=== PATIENT | female | born 1970 | race Caucasian/White ===

== ENCOUNTER 2016-08-28 13:05 | Inpatient (IN) | payer BC ==
[~2016-08-28] VITALS: Ht 152.4 cm; Wt 57.5 kg
[2016-08-28] MEDS ORDERED: LISI-662 PO (13:35)
[2016-08-28] MEDS ORDERED: SITA50 PO (13:35)
[2016-08-28] MEDS ORDERED: MINO10 PO (13:35)
[2016-08-28] MEDS ORDERED: PHOSLOC PO (13:35)
[2016-08-28] MEDS ORDERED: FOLI0.8T22 PO (13:35)
[2016-08-28] MEDS ORDERED: METO50 PO (13:35)
[2016-08-28 13:41] LABS: BASOPHILS % (AUTO) 0.3 % (0.0-2.0); HEMATOCRIT 28.6 % (36-46); HEMOGLOBIN 9.3 g/dL (12.0-16.0); LYMPHOCYTES # (AUTO) 1.7 K/uL (1.0-4.8); LYMPHOCYTES % (AUTO) 13.8 % (22.0-44.0); MEAN CORPUSCULAR HGB CONC 32.3 G/dL (31.0-37.0); MEAN CORPUSCULAR VOLUME 90 fL (80-100); MONOCYTES # (AUTO) 0.7 K/uL (0.1-1.0); MONOCYTES % (AUTO) 5.9 % (2.0-9.0); NEUTROPHILS # (AUTO) 9.1 K/uL (1.8-7.7); PLATELET COUNT (AUTO) 204 K/uL (150-450); RED BLOOD CELL COUNT(AUTO) 3.19 MIL/uL (4.00-5.20); RED CELL DISTRIBUTION WIDTH 16.4 % (11.5-14.5)
[2016-08-28 13:41] LABS: GLUCOSE,POINT OF CARE 163 MG/DL (70-110)
[2016-08-28 13:52] LABS: CALCIUM, TOTAL 7.5 mg/dL (8.8-10.5); CREATININE 10.16 mg/dL (0.60-1.30); POTASSIUM 5.2 mmol/L (3.5-5.1)
[2016-08-28 13:58] LABS: BILIRUBIN,TOTAL 0.4 mg/dL (0.1-1.0); TOTAL PROTEIN, SERUM 6.7 g/dL (6.4-8.2)
[2016-08-28 16:16] VITALS: BP 185/96
[2016-08-28] MEDS ORDERED: DEXTROSE 50%-WATER 25 GM/50 ML SYRINGE IVP PRN ×2 (18:00)
[2016-08-28] MEDS ORDERED: INSULIN REGULAR, HUMAN 100 UNITS/ML SQ PRN (18:00)
[2016-08-28] MEDS: VITAMIN B COMP/VIT C/FOLIC ACID CAPSULE PO SCH (18:43)
[2016-08-28] MEDS: LISINOPRIL 20 MG TABLET PO SCH (18:43)
[2016-08-28] MEDS ORDERED: ONDANSETRON HCL 4 MG/2 ML VIAL IVP PRN (19:00)
[2016-08-28] MEDS ORDERED: OxyCODONE HCL/ACETAMINOPHEN 5-325 MG TABLET PO PRN ×2 (19:00)
[2016-08-28] MEDS ORDERED: CloNIDine HCL 0.2 MG TABLET PO PRN (19:00)
[2016-08-28] MEDS ORDERED: BUMETANIDE 1 MG TABLET PO ONE (19:00)
[2016-08-28] MEDS ORDERED: 0.9% SODIUM CHLORIDE 10 ML SYRINGE IVP PRN (19:00)
[2016-08-28] MEDS ORDERED: CloNIDine HCL 0.1 MG TABLET PO PRN (19:15)
[2016-08-28 19:48] VITALS: BP 184/95
[2016-08-28] MEDS ORDERED: HydrALAZINE HCL 20 MG/ML VIAL IVP PRN (20:30)
[2016-08-28] MEDS: PANTOPRAZOLE SODIUM 40 MG/VIAL IVP SCH (20:52)
[2016-08-28] MEDS: DOCUSATE SODIUM 100 MG CAPSULE PO SCH (20:52)
[2016-08-28] MEDS: METOPROLOL TARTRATE 50 MG TABLET PO SCH (20:52)
[2016-08-28] MEDS: MINOXIDIL 10 MG TABLET PO SCH (20:53)
[2016-08-28] MEDS: SitaGLIPtin PHOSPHATE 50 MG TABLET PO SCH (20:58)
[2016-08-28] MEDS: INSULIN ASPART 100 UNITS/ML SQ PRN (21:08)
[2016-08-28 21:22] LABS: GLUCOSE,POINT OF CARE 101 MG/DL (70-110)
[2016-08-28 21:27] LABS: GLUCOSE,POINT OF CARE 165 MG/DL (70-110)
[2016-08-28 23:16] VITALS: BP 122/65
[2016-08-29 05:01] VITALS: BP 122/62
[2016-08-29 05:57] LABS: GLUCOSE,POINT OF CARE 95 MG/DL (70-110)
[2016-08-29 06:19] LABS: CALCIUM, TOTAL 7.4 mg/dL (8.8-10.5); CREATININE 10.03 mg/dL (0.60-1.30); POTASSIUM 5.8 mmol/L (3.5-5.1)
[2016-08-29 06:39] LABS: BASOPHILS % (AUTO) 0.4 % (0.0-2.0); EOSINOPHILS % (AUTO) 6.3 % (1.0-6.0); HEMATOCRIT 26.8 % (36-46); HEMOGLOBIN 8.7 g/dL (12.0-16.0); LYMPHOCYTES # (AUTO) 2.2 K/uL (1.0-4.8); LYMPHOCYTES % (AUTO) 21.5 % (22.0-44.0); MEAN CORPUSCULAR HEMOGLOBIN 29.3 pg (26.0-34.0); MEAN CORPUSCULAR HGB CONC 32.5 G/dL (31.0-37.0); MEAN CORPUSCULAR VOLUME 90 fL (80-100); MONOCYTES # (AUTO) 0.8 K/uL (0.1-1.0); MONOCYTES % (AUTO) 7.3 % (2.0-9.0); NEUTROPHILS # (AUTO) 6.7 K/uL (1.8-7.7); NEUTROPHILS % (AUTO) 64.5 % (40.0-70.0); PLATELET COUNT (AUTO) 192 K/uL (150-450); RED BLOOD CELL COUNT(AUTO) 2.97 MIL/uL (4.00-5.20); RED CELL DISTRIBUTION WIDTH 16.9 % (11.5-14.5); WHITE BLOOD COUNT (AUTO) 10.4 K/uL (4.5-11.0)
[2016-08-29 07:30] VITALS: BP 143/72
[2016-08-29] MEDS ORDERED: CALCIUM ACETATE 667 MG CAPSULE PO SCH ×2 (08:00→18:00)
[2016-08-29] MEDS ORDERED: EPOETIN ALFA 10,000 UNITS/ML 2 ML VIAL SQ ONE (08:00)
[2016-08-29] MEDS: PANTOPRAZOLE SODIUM 40 MG/VIAL IVP SCH (08:01)
[2016-08-29] MEDS: MINOXIDIL 10 MG TABLET PO SCH ×2 (09:00→15:42)
[2016-08-29] MEDS ORDERED: SODIUM CHLORIDE 0.9% 2,000 ML IV ONE (09:34)
[2016-08-29 11:43] LABS: GLUCOSE,POINT OF CARE 157 MG/DL (70-110)
[2016-08-29] MEDS ORDERED: HEPARIN SODIUM,PORCINE 1,000 UNITS/ML VIAL IVP ONE ×3 (12:15→19:33)
[2016-08-29] MEDS ORDERED: MANNITOL 25%-12.5 GM/50 ML VIAL IVP PRN (12:15)
[2016-08-29] MEDS: INSULIN ASPART 100 UNITS/ML SQ PRN (12:59)
[2016-08-29 13:04] VITALS: BP 123/67
[2016-08-29 13:45] VITALS: BP 121/63
[2016-08-29] MEDS: DOCUSATE SODIUM 100 MG CAPSULE PO SCH (14:45)
[2016-08-29] MEDS: VITAMIN B COMP/VIT C/FOLIC ACID CAPSULE PO SCH (14:45)
[2016-08-29] MEDS: SitaGLIPtin PHOSPHATE 50 MG TABLET PO SCH (14:45)
[2016-08-29] MEDS: LISINOPRIL 20 MG TABLET PO SCH (14:52)
[2016-08-29] MEDS: METOPROLOL TARTRATE 50 MG TABLET PO SCH (15:42)
[2016-08-29 16:02] VITALS: BP 132/60
[2016-08-29 17:32] LABS: GLUCOSE COMMENT 1 Juice/Food/D50 Given; GLUCOSE,POINT OF CARE 98 MG/DL (70-110)
[2016-08-29] MEDS ORDERED: BUME1TAB30 PO (20:09)
[2016-08-29] MEDS ORDERED: BUME2TAB18 PO (20:13)
[2016-08-29 20:20] VITALS: BP 142/68
== END 2016-08-29 20:30 | disposition home or self-care (01) | DRG 425 ==
LOC: EMS 13:09 → 6N 14:56
PROVIDERS: ADMIT Internal Medicine; ATTEND Internal Medicine
PROC: 5A1D00Z (ICD-10-PCS; principal; 2016-08-28)
DX: E87.70 Fluid overload, unspecified (principal); E43 Unspecified severe protein-calorie malnutrition; I12.0 Hypertensive chronic kidney disease with stage 5 chronic kidney disease or end stage renal disease; N18.6 End stage renal disease; E11.21 Type 2 diabetes mellitus with diabetic nephropathy; D63.1 Anemia in chronic kidney disease; E11.22 Type 2 diabetes mellitus with diabetic chronic kidney disease; E11.319 Type 2 diabetes mellitus with unspecified diabetic retinopathy without macular edema; E11.65 Type 2 diabetes mellitus with hyperglycemia; E78.00 Pure hypercholesterolemia, unspecified; H54.61 Unqualified visual loss, right eye, normal vision left eye; N25.0 Renal osteodystrophy; Z68.24 Body mass index [BMI] 24.0-24.9, adult; Z91.15 Patient's noncompliance with renal dialysis; Z99.2 Dependence on renal dialysis; Z79.899 Other long term (current) drug therapy; Z79.84 Long term (current) use of oral hypoglycemic drugs; Z98.890 Other specified postprocedural states; Z80.0 Family history of malignant neoplasm of digestive organs; Z80.1 Family history of malignant neoplasm of trachea, bronchus and lung; Z82.49 Family history of ischemic heart disease and other diseases of the circulatory system; Z83.3 Family history of diabetes mellitus
CPT/HCPCS: 82962; 84100; 87081; 87340; 90935; 99285; C9113; J0885; J1644; J7030

== ENCOUNTER 2016-11-04 09:59 | Observation (INO) | payer BC, MEDICAID ==
[~2016-11-04] VITALS: Ht 149.9 cm; Wt 54.4 kg
[~2016-11-04 09:59] MED LIST: BUME2TAB18 PO; FOLI0.8T22 PO; LISI-662 PO; METO50 PO; MINO10 PO; PHOSLOC PO; SITA50 PO
[2016-11-04 10:27] LABS: GLUCOSE,POINT OF CARE 81 MG/DL (70-110)
[2016-11-04] MEDS ORDERED: LABETALOL HCL 5 MG/ML 20 ML VIAL IVP ONE (11:45)
[2016-11-04] MEDS ORDERED: HydrALAZINE HCL 20 MG/ML VIAL IVP ONE (12:15)
[2016-11-04 12:27] LABS: BASOPHILS # (AUTO) 0.04 K/uL (0.00-0.20); BASOPHILS % (AUTO) 0.4 % (0.0-2.0); EOSINOPHILS % (AUTO) 0 % (1.0-6.0); HEMATOCRIT 27.7 % (36-46); HEMOGLOBIN 9.2 g/dL (12.0-16.0); LYMPHOCYTES # (AUTO) 1.8 K/uL (1.0-4.8); LYMPHOCYTES % (AUTO) 17.8 % (22.0-44.0); MEAN CORPUSCULAR HEMOGLOBIN 30.5 pg (26.0-34.0); MEAN CORPUSCULAR HGB CONC 33.2 G/dL (31.0-37.0); MEAN CORPUSCULAR VOLUME 92 fL (80-100); MONOCYTES # (AUTO) 0.5 K/uL (0.1-1.0); MONOCYTES % (AUTO) 4.7 % (2.0-9.0); NEUTROPHILS # (AUTO) 7.6 K/uL (1.8-7.7); NEUTROPHILS % (AUTO) 77.1 % (40.0-70.0); PLATELET COUNT (AUTO) 139 K/uL (150-450); RED BLOOD CELL COUNT(AUTO) 3.02 MIL/uL (4.00-5.20); RED CELL DISTRIBUTION WIDTH 14.2 % (11.5-14.5); WHITE BLOOD COUNT (AUTO) 9.8 K/uL (4.5-11.0)
[2016-11-04 12:34] LABS: CALCIUM, TOTAL 7.7 mg/dL (8.8-10.5); CREATININE 10.37 mg/dL (0.60-1.30); POTASSIUM 5.2 mmol/L (3.5-5.1)
[2016-11-04 12:40] LABS: ALBUMIN 3.5 g/dL (3.4-5.0); BILIRUBIN,TOTAL 0.5 mg/dL (0.1-1.0)
[2016-11-04] MEDS ORDERED: 0.9% SODIUM CHLORIDE 10 ML SYRINGE IVP PRN (13:45)
[2016-11-04] MEDS ORDERED: ACETAMINOPHEN 325 MG TABLET PO PRN (13:45)
[2016-11-04] MEDS ORDERED: ONDANSETRON HCL 4 MG/2 ML VIAL IVP PRN (13:45)
[2016-11-04] MEDS ORDERED: CALCIUM ACETATE 667 MG CAPSULE PO SCH (18:00)
[2016-11-04 19:55] VITALS: BP 184/87
[2016-11-04] MEDS ORDERED: ONDANSETRON HCL 4 MG/2 ML VIAL IM ONE (20:15)
[2016-11-04] MEDS ORDERED: ONDANSETRON HCL 4 MG/2 ML VIAL IVP ONE (20:45)
[2016-11-04] MEDS ORDERED: LISINOPRIL 20 MG TABLET PO SCH (21:00)
[2016-11-04] MEDS ORDERED: METOPROLOL TARTRATE 50 MG TABLET PO SCH (21:00)
[2016-11-04] MEDS ORDERED: HEPARIN SODIUM,PORCINE 1,000 UNITS/ML VIAL IVP ONE (21:04)
[2016-11-05] MEDS ORDERED: HEPARIN SODIUM,PORCINE 5,000 UNITS/ML VIAL SQ SCH
[2016-11-05] MEDS ORDERED: VITAMIN B COMP/VIT C/FOLIC ACID CAPSULE PO SCH (09:00)
[2016-11-05] MEDS ORDERED: BUMETANIDE 1 MG TABLET PO SCH (09:00)
[2016-11-06] MEDS ORDERED: EPOETIN ALFA 10,000 UNITS/ML VIAL SQ SCH (09:00)
== END 2016-11-04 21:05 | disposition left against medical advice (07) ==
LOC: EMS 10:01 → 6N 13:27 → INTOOBSV 13:27
PROVIDERS: ADMIT Internal Medicine; ATTEND Internal Medicine
DX: I13.2 Hypertensive heart and chronic kidney disease with heart failure and with stage 5 chronic kidney disease, or end stage renal disease (principal); N18.6 End stage renal disease; I50.9 Heart failure, unspecified; E11.40 Type 2 diabetes mellitus with diabetic neuropathy, unspecified; E11.22 Type 2 diabetes mellitus with diabetic chronic kidney disease; D63.1 Anemia in chronic kidney disease; E78.00 Pure hypercholesterolemia, unspecified; E78.5 Hyperlipidemia, unspecified; E87.5 Hyperkalemia; Z59.0 Homelessness; Z99.2 Dependence on renal dialysis; Z80.1 Family history of malignant neoplasm of trachea, bronchus and lung
CPT/HCPCS: 36415; 71010; 80053; 82962; 83880; 84484; 85025; 87340; 93005; 96374; 96375 ×2; 99291; G0378; J0360; J1644; J2405; J3490

== ENCOUNTER 2017-04-12 13:42 | Emergency (ER) | payer OTHER ==
[~2017-04-12] VITALS: Ht 149.9 cm; Wt 54.5 kg
[~2017-04-12 13:42] MED LIST changes: -BUME2TAB18 PO; +EPOE10003 SQ; -MINO10 PO
[2017-04-12 13:53] LABS: GLUCOSE,POINT OF CARE 151 MG/DL (70-110)
[2017-04-12 14:57] VITALS: BP 127/67
== END 2017-04-12 15:49 | disposition home or self-care (01) ==
LOC: EMS 13:43
DX: Z45.09 Encounter for adjustment and management of other cardiac device (principal); E11.9 Type 2 diabetes mellitus without complications; E78.00 Pure hypercholesterolemia, unspecified; I10 Essential (primary) hypertension
CPT/HCPCS: 82962; 99282

== ENCOUNTER 2019-08-30 13:41 | Emergency (ER) | payer MEDICARE, MEDICAID ==
[~2019-08-30] VITALS: Ht 157.5 cm; Wt 60.0 kg
[~2019-08-30 13:41] MED LIST changes: +B CO1CAP6 PO; +MINO10 PO
[2019-08-30 13:58] LABS: GLUCOSE,POINT OF CARE 181 MG/DL (70-110)
[2019-08-30] MEDS ORDERED: ACETAMINOPHEN 325 MG TABLET PO ONE (15:00)
[2019-08-30 16:17] VITALS: BP 136/81
== END 2019-08-30 16:19 | disposition home or self-care (01) ==
LOC: EMS 13:43
DX: S93.491A Sprain of other ligament of right ankle, initial encounter (principal); E11.9 Type 2 diabetes mellitus without complications; E78.00 Pure hypercholesterolemia, unspecified; I10 Essential (primary) hypertension; Z79.899 Other long term (current) drug therapy; Z98.890 Other specified postprocedural states; V89.2XXA Person injured in unspecified motor-vehicle accident, traffic, initial encounter; Y93.89 Activity, other specified; Y92.488 Other paved roadways as the place of occurrence of the external cause; Y99.8 Other external cause status